=== PATIENT | female | born 1985 | race Caucasian/White ===

== ENCOUNTER 2018-12-14 10:30 | Outpatient (CLI) | payer OTHER ==
[2018-12-14 11:26] LABS: Appearance,Urine Cloudy (Clear); Bacteria,Urine Rare /hpf; Bilirubin,Urine Negative (Negative); Blood,Urine Negative (Negative); Color,Urine Yellow; Glucose,Urine (UA) Negative (Negative); Ketones,Urine Negative (Negative); Leukocyte Esterase,Urine Moderate (Negative); Mucus,Urine Rare /hpf; Nitrite,Urine Negative (Negative); PH, Urine 7.5 (5.0-8.0); Protein,Urine Negative (Negative); RBC,Urine <1 /hpf (0-5); Specific Gravity,Urine 1.014 (1.001-1.035); Squamous Epithelial Cell,Urine 9 /hpf (0-4); Urobilinogen,Urine <2.0 mg/dL (<2.0); WBC,Urine 4 /hpf (0-5)
[2018-12-14 11:32] LABS: Basophils % (A) 0 %; Eosinophils # (A) 0.1 k/uL (0-0.7); Eosinophils % (A) 1 %; HCT 35.8 % (34.0-46.0); HGB 12.1 gm/dL (11.4-16.0); Lymphocytes # (A) 1.6 k/uL (1.0-4.8); Lymphocytes % (A) 17 %; MCH 31.1 pg (25.0-35.0); MCHC 33.7 g/dL (31.0-37.0); MCV 92.3 fL (80.0-100.0); Monocytes # (A) 0.4 k/uL (0-1.0); Monocytes % (A) 4 %; Neutrophils % (A) 76 %; Platelet Count 271 k/uL (150-450); RBC 3.88 m/uL (3.80-5.40); WBC 9.3 k/uL (3.8-10.6)
[2018-12-14 11:48] LABS: ALT 24 U/L (9-52); AST 23 U/L (14-36); Blood Urea Nitrogen 7 mg/dL (7-17); LDH 387 U/L (313-618); Uric Acid 4.2 mg/dL (3.7-7.4)
[2018-12-14 11:52] VITALS: BP 134/72; PULSE 85; RESP 16; TEMP 98
--- NOTE | 2018-12-14 13:04 | P.MSEPDOC ---
Presenting Problems - Arrival Data Date of Arrival on Unit: 12/14/18 Time of Arrival on Unit: 10:35 Mode of Transport: Ambulatory - Complaint OB-Reason for Admission/Chief Complaint: PIH, Elevated Blood Pressure Comment: sent from office for elevated BP in office Medical History - Information : 2 Para: 1 Term: 1 : 0 Abortions: Spontaneous or Elective: 0 Number of Living Children: 1 - Gestational Age Gestational Age by JANIE (wks/days): 34 Weeks and 0 Days Review of Systems - Review of Systems Constitutional: No problems Breast: No problems ENT: No problems Cardiovascular: No problems Respiratory: No problems Gastrointestinal: No problems Genitourinary: No problems Musculoskeletal: No problems Neurological: No problems Skin: No problems Vital Signs - Temperature Temperature: 98.0 F Temperature Source: Temporal Artery Scan - Pulse Right Pulse Rate: 85 Pulse Assessment Method: Pulse Oximetry - Respirations Respiratory Rate: 16 O2 Sat by Pulse Oximetry: 100 - Blood Pressure Right Arm Blood Pressure: 134/72 Blood Pressure Mean: 92 Blood Pressure Source: Automatic Cuff Medical Screen Scoring (Pre) - Cervical Exam Dilation: Exam Deferred Effacement: Exam Deferred Membranes: Intact - Uterine Contractions Frequency: N/A Duration: N/A Intensity: N/A - Maternal Vital Signs Maternal Temperature: N/A Maternal Blood Pressure: N/A Signs of Preeclampsia: N/A Maternal Respirations: N/A - Assessment Baseline FHR: 145 Heart Rate - NICHD Category: Category I (Normal) = 0 NST: Reactive Position: N/A Station: N/A - Total Score Total Score (Pre): 0 - Level of Risk Level of Risk: N/A Physician Notification (Post) - Physician Notified Physician Notified Date: 12/14/18 Physician Notified Time: 12:27 Physician/Practitioner Notified:: dr antoine New Order Received: Yes - Notification Comment Comment: PT ARRIVED TO OUR UNIT FROM THE OFFICE AFTER BEING SEEN BY DR ANTOINE WITH ORDERS I agree with the RN Medical Screening Exam: Yes Risk & Benefit of care provided described in d/c instruction: Yes Diagnosis: GESTATIONAL HTN W/O SIGNIFICANT PROTEINURIA, THIRD TRIMESTER (Pre- eclampsia evaluation was negative. FHT Cat I. Blood pressures normal. Will continue to watch closely 2x/week. Delivery scheduled for 37wks unless indicated earlier.)
== END 2018-12-14 12:29 | disposition home or self-care (01) ==
LOC: FBPOP 10:30
PROVIDERS: ATTEND Obstetrics & Gynecology
DX: O13.3 Gestational [pregnancy-induced] hypertension without significant proteinuria, third trimester (principal); Z3A.34 34 weeks gestation of pregnancy
CPT/HCPCS: 59025; 81001; 82565; 82570; 83615; 84156; 84450; 84460; 84520; 84550; 85025; 99215

== ENCOUNTER 2019-01-04 05:30 | Inpatient (IN) | payer OTHER ==
[2018-12-31 14:39] VITALS: BMI 26.1
--- NOTE | 2019-01-03 07:29 | P.HPOB ---
History of Present Illness H&P Date: 01/03/19 Chief Complaint: Repeat and tubal ligation. This patient is a pleasant 33-year-old 2 para 1 female estimated date of confinement 01/25/2019 estimated gestational age 37-0/7 weeks gestation who presents for repeat section and tubal ligation. Patient's is been complicated by gestational hypertension. I initially instructed the patient did start labetalol at around 11 weeks however she elected to just watch her blood pressure at home. Patient's blood pressures ranged anywhere from 120s to the 150 over 70-90. Patient's is also complicated by advanced for maternal age and she did have a maternity 21 which was normal but did not want referral to maternal- medicine. Patient was watched with nonstress tests and growth ultrasounds. Due to the gestational hypertension, recommendation proceed with delivery at this time. Patient's had a previous section request repeat and also requesting permanent sterilization Review of Systems Gastrointestinal: Reports heartburn Genitourinary: Reports Menstruation: Reports amenorrhea Past Medical History Past Medical History: No Reported History Additional Past Medical History / Comment(s): Gestational hypertension. History of Any Multi-Drug Resistant Organisms: None Reported Past Surgical History: Bladder Surgery, Section Past Anesthesia/Blood Transfusion Reactions: No Reported Reaction Past Psychological History: No Psychological Hx Reported Smoking Status: Never smoker Past Alcohol Use History: None Reported Past Drug Use History: None Reported - Past Family History Mother Family Medical History: No Reported History Medications and Allergies Home Medications Medication Instructions Recorded Confirmed Type Pnv,Calcium 72/Iron/Folic Acid 1 each PO DAILY 12/14/18 12/31/18 History [ Plus Tablet] Allergies Allergy/AdvReac Type Severity Reaction Status Date / Time No Known Allergies Allergy Verified 12/31/18 14:33 Exam - OBG Physical Exam Abdomen: bowel sounds normal, no diffuse tenderness, no bruit present, no guarding noted, no hepatomegaly, no splenomegaly, no mass Vulva: both: normal Vagina: normal moisture, no discharge Cervix: no lesion (Cervix in the office is closed), no discharge Uterus: enlarged (Fundal height is 38 cm) Results blood work shows she is oh positive, rubella immune, RPR nonreactive, HIV nonreactive, hepatitis B was negative, maternity T21 showed normal 46 XY, Glucola was normal, group B strep was positive. Assessment and Plan Assessment: This is a pleasant 33-year-old 2 para 1 female 37 weeks gestation with gestational hypertension, previous section desires repeat, and request for permanent sterilization. Plan is repeat low transverse section and bilateral partial salpingectomy. The patient and I have discussed the fact that a tubal ligation is permanent however there is a failure rate of approximately 5 or less per thousand procedures done. She also understands surgery itself apparently has risks including risks of infection, bleeding, possible injury to bowel, bladder, vessels, and/or other organs. She understands risk of DVT and pulmonary embolism. All the patient's questions have been answered and a written consent is obtained. (1) 37 weeks gestation of Status: Acute Code(s): Z3A.37 - 37 WEEKS GESTATION OF SNOMED Code(s): 90089347 (2) Gestational hypertension Status: Acute Code(s): O13.9 - GESTATIONAL HTN W/O SIGNIFICANT PROTEINURIA, UNSP TRIMESTER SNOMED Code(s): 124236844 (3) Elderly multigravida Status: Acute Code(s): O09.529 - SUPERVISION OF ELDERLY MULTIGRAVIDA, UNSPECIFIED TRIMESTER SNOMED Code(s): 592873955 (4) Family planning Status: Acute Code(s): Z30.09 - ENCOUNTER FOR OT GENERAL CNSL AND ADVICE ON CONTRACEPTION SNOMED Code(s): 261412503 (5) Group B streptococcal carriage complicating Status: Acute Code(s): O99.820 - STREPTOCOCCUS B CARRIER STATE COMPLICATING SNOMED Code(s): 160305411197984
[2019-01-04] MEDS ORDERED: LACTATED RINGERS 1,000 ML IV SCH (05:46)
[2019-01-04] MEDS ORDERED: CITRIC ACID-SODIUM CITRATE 15 ML CUP PO ONE (05:46)
[2019-01-04] MEDS ORDERED: LACTATED RINGERS 1,000 ML IV ONE (05:46)
[2019-01-04 06:40] LABS: Basophils % (A) 0 %; Eosinophils # (A) 0.1 k/uL (0-0.7); Eosinophils % (A) 1 %; HCT 36.9 % (34.0-46.0); HGB 12.3 gm/dL (11.4-16.0); Lymphocytes # (A) 2.1 k/uL (1.0-4.8); Lymphocytes % (A) 24 %; MCH 30.4 pg (25.0-35.0); MCHC 33.4 g/dL (31.0-37.0); MCV 91.2 fL (80.0-100.0); Mean Platelet Volume 8.1; Monocytes # (A) 0.6 k/uL (0-1.0); Monocytes % (A) 7 %; Neutrophils # (A) 5.9 k/uL (1.3-7.7); Neutrophils % (A) 66 %; Platelet Count 261 k/uL (150-450); RBC 4.04 m/uL (3.80-5.40); RDW 14.8 % (11.5-15.5); WBC 8.9 k/uL (3.8-10.6)
[2019-01-04 06:45] LABS: INR 0.9 (<1.2); Prothrombin Time 9.6 sec (9.0-12.0)
[2019-01-04] MEDS ORDERED: ceFAZolin IN SWFI 2 GM/20 ML SYRINGE IVP ONE (07:15)
[2019-01-04 07:30] LABS: Partial Thromboplastin Time 20.9 sec (22.0-30.0)
[2019-01-04] MEDS ORDERED: ONDANSETRON 4 MG/2 ML VIAL ONE (07:44)
[2019-01-04] MEDS ORDERED: MORPHINE SULFATE (PF) 0.3 MG/0.3 ML SYR ONE (07:44)
[2019-01-04] MEDS ORDERED: ePHEDrine SULFATE/0.9% NACL/PF 50 MG/5 ML SYRINGE IV ONE (07:44)
[2019-01-04] MEDS ORDERED: NALBUPHINE 10 MG/ML (1 ML AMP) ONE (07:44)
[2019-01-04] MEDS ORDERED: KETOROLAC 30 MG/ML 1 ML VIAL ONE (07:44)
[2019-01-04] MEDS ORDERED: OXYTOCIN 10 UNIT/ML 1 ML VIAL ONE (07:44)
[2019-01-04] MEDS ORDERED: LACTATED RINGERS 1,000 ML BAG IV ONE (07:44)
[2019-01-04] MEDS ORDERED: NALBUPHINE 10 MG/ML (1 ML AMP) IV PRN (08:02)
[2019-01-04] MEDS ORDERED: NALOXONE 0.4 MG/ML 1 ML VIAL IV PRN ×2 (08:02→08:46)
[2019-01-04] MEDS ORDERED: HYDROmorphone 1 MG/ML 1 ML SYRINGE IVP PRN (08:02)
[2019-01-04] MEDS ORDERED: ONDANSETRON 4 MG/2 ML VIAL IVP PRN ×2 (08:02→08:46)
--- NOTE | 2019-01-04 08:32 | P.OP ---
Date of Procedure: 01/04/19 Preoperative Diagnosis: #1: 37-0/7 week . #2: Gestational hypertension. #3: Previous section desires repeat. #4: Multi parity desires permanent sterilization. Postoperative Diagnosis: Same Procedure(s) Performed: Repeat low transverse section and bilateral partial salpingectomy Anesthesia: spinal Surgeon: Nilesh Pereira Ice Cream Dipper #1: No Edwards Estimated Blood Loss (ml): 800 Pathology: other (Placenta and bilateral fallopian tube segments) Condition: stable Disposition: floor Indications for Procedure: Please see dictated H&P for intimate details of this patient's admission. Brief summary this is a pleasant 33-year-old 2 para 1 female 37 weeks gestation who is been monitored closely for gestational hypertension who is now at 37 weeks and been recommended to proceed with delivery at this time. Patien t's had previous section desires repeat and also requests permanent sterilization. Patient understands a tubal ligation is permanent however does have a failure rate of approximately 5 or less per thousand procedures done. She understands if she does become she is a 50% chance of a tubal or an ectopic . Patient also understands that surgery itself and apparently has risks including risks of infection, bleeding, possible injury to bowel, bladder, vessels, and/or other organs. All the patient's questions been answered and written consent is obtained. Operative Findings: This was a vigorous viable male Apgars 8 and 9 delivery time was 0758 hours. Description of Procedure: This patient has a Zapata catheter placed to straight drain. She is subsequently taken to the operating room where she sat up and spinal anesthetic is administered without incident. With an adequate level of anesthesia she has abdominal prep and drape. Scalpels and taken the previous Pfannenstiel incision is incised. A second scalpel is taken down the fascia and the fascia scored with a knife. Fascial incision extended bilaterally using the Schultz scissors. Fascia is then dissected sharply off the rectus muscles. Rectus muscles are and the peritoneum identified and entered sharply. Peritoneal incision extended superior and inferior without difficulty. Latter blade is then placed. Bladder peritoneum was taken down sharply with a Metzenbaum scissors. Scalpels and taken a low transverse uterine incision is made. Hemostat is then gently placed into the uterine cavity and there is loss of clear fluid. This incision is extended bluntly. The 's head is then guided through the incision with fundal pressure delivered. Mouth and nares are bulb suctioned. There is no evidence of a nuchal cord. We then deliver the rest this 's body. This is a vigorous viable male infant Apgars are 8 and 9 delivery time is 0758 hours. After delivery of the the umbilical cords doubly clamped and cut appears to be trivascular. The placenta is then manually extracted intact. Uterus is then externalized. Uterine incision demarcated with Hein clamps it is quite thick. There is a 2-3 cm posterior fibroid otherwise the uterus tubes and ovaries appear normal. Uterine incision is then explored and all placental tissue has been removed. Incision is then closed using 0 Vicryl running locked fashion. Excellent hemostasis is noted bladder peritoneum was then closed using a 3-0 Vicryl. I then turned my attention to the left fallopian tube and approximately 4 cm from the cornual insertion I make a small window through the mesial salpinx with bovie cautery. Using a 2-0 silk I doubly ligate a 2 cm segment of the tube. This is excised and handed off to pathology. Cauterization is done of the tubal ends. Excellent hemostasis is noted. Turned my attention to the right side and using a similar technique I remove a portion of the right fallopian tube again good hemostasis is noted. Excess fluid is removed from the abdomen and pelvis. The parietal peritoneum was then identified. I inspected tubal ends once again and all appears hemostatic. Parietal peritoneum was then closed using 0 Vicryl running fashion. Rectus muscles were approximate Vicryl interrupted fashion. Fascia is then closed using 0 PDS. Fascial incision is intact and hemostatic. Subcutaneous tissues and closed using a 3-0 Vicryl. Skin is and closed using sophia. All counts are correct 3. There are no complications. Infant and mother are taken to the birthing suite in satisfactory condition.
[2019-01-04] MEDS ORDERED: HYDROcodone/APAP 5-325MG 1 EACH TAB PO PRN (08:46)
[2019-01-04] MEDS ORDERED: diphenhydrAMINE 50 MG/ML 1 ML VIAL IVP PRN (08:46)
[2019-01-04] MEDS ORDERED: diphenhydrAMINE 25 MG CAP PO PRN (08:46)
[2019-01-04] MEDS ORDERED: ACETAMINOPHEN TAB 325 MG TAB PO PRN (08:46)
[2019-01-04] MEDS ORDERED: ZOLPIDEM 5 MG TAB PO PRN (08:46)
[2019-01-04] MEDS ORDERED: LANOLIN CREAM 5 GM TUBE TOPICAL PRN (08:46)
[2019-01-04] MEDS ORDERED: KETOROLAC 30 MG/ML 1 ML VIAL IVP PRN (08:46)
[2019-01-04] MEDS ORDERED: OXYTOCIN 20 UNITS/1000 ML NS 1,000 ML IV SCH (08:46)
[2019-01-04] MEDS ORDERED: METOCLOPRAMIDE 5 MG/ML 2 ML VIAL IVP PRN (08:46)
[2019-01-04] MEDS: SENNOSIDES-DOCUSATE SODIUM 1 EACH TAB PO SCH ×2 (18:34→19:34)
[2019-01-04] MEDS: LACTATED RINGERS 1,000 ML IV SCH (18:35)
[2019-01-05 05:42] LABS: Basophils % (A) 0 %; Eosinophils # (A) 0.1 k/uL (0-0.7); Eosinophils % (A) 1 %; HCT 33.2 % (34.0-46.0); HGB 11.4 gm/dL (11.4-16.0); Lymphocytes # (A) 1.6 k/uL (1.0-4.8); Lymphocytes % (A) 13 %; MCH 31.6 pg (25.0-35.0); MCHC 34.3 g/dL (31.0-37.0); MCV 92.3 fL (80.0-100.0); Mean Platelet Volume 7.5; Monocytes # (A) 0.7 k/uL (0-1.0); Monocytes % (A) 6 %; Neutrophils # (A) 10.1 k/uL (1.3-7.7); Neutrophils % (A) 79 %; Platelet Count 232 k/uL (150-450); RDW 14.4 % (11.5-15.5); WBC 12.8 k/uL (3.8-10.6)
--- NOTE | 2019-01-05 05:50 | P.PN ---
Progress Note - Text Progress Note Date: 01/05/19 POD 1 from . Had a spinal with Duramorph. Doing well this morning, able to ambulate and urinate on her own. No lower ext weakness. No parasthesia. No pruritis. Pain under control. No mental status changes.
--- NOTE | 2019-01-05 06:35 | P.PNOBGPC ---
Subjective - Subjective Patient reports: Reports appetite normal, Reports voiding normally, Reports pain well controlled, Reports ambulating normally : doing well, in NICU Objective - Vital Signs Latest vital signs: Vital Signs Temp Pulse Resp BP Pulse Ox 01/05/19 06:00 16 01/05/19 04:00 98.0 F 83 16 114/63 98 01/05/19 02:00 16 01/05/19 00:00 98.1 F 70 16 111/60 98 01/04/19 22:00 16 01/04/19 20:00 98.0 F 93 16 119/76 97 01/04/19 17:00 16 99 01/04/19 16:00 99 F 76 16 126/71 99 01/04/19 15:00 16 98 01/04/19 13:02 98 01/04/19 13:00 99 F 76 16 126/71 98 01/04/19 12:00 97.5 F L 76 18 126/79 98 01/04/19 11:02 18 98 01/04/19 10:29 97.1 F L 73 18 117/57 98 01/04/19 09:59 97.5 F L 74 18 126/59 98 01/04/19 09:29 97.5 F L 76 18 129/58 97 01/04/19 09:14 73 18 120/59 98 01/04/19 09:02 18 96 01/04/19 08:59 98.5 F 71 18 121/60 100 01/04/19 08:44 82 18 131/60 96 01/04/19 08:29 97.2 F L 73 18 122/55 01/04/19 08:02 18 96 Intake and Output 01/04/19 01/04/19 01/05/19 14:59 22:59 06:59 Output Total 125 1200 Balance -125 -1200 Output: Urine 125 1200 Other: Voiding Method Indwelling Catheter # Voids 1 1 - Exam Lungs: bilateral: normal Chest: Normal S1, Normal S2 Extremities: Present: normal Abdomen: Present: normal appearance, soft. Absent: distention, tenderness Incision: Present: normal, dry, intact Uterus: Present: normal, firm - Labs Labs: Abnormal Lab Results - Last 24 Hours (Table) 01/04/19 01/05/19 Range/Units 06:04 05:14 WBC 12.8 H (3.8-10.6) k/uL RBC 3.60 L (3.80-5.40) m/uL Hct 33.2 L (34.0-46.0) % Neutrophils # 10.1 H (1.3-7.7) k/uL APTT 20.9 L (22.0-30.0) sec Assessment and Plan Assessment: Post operative day #1. Patient is resting without complaints. Vital signs are stable her blood pressures excellent. Uterus is firm nontender and her incision is intact and dry. My impression is this is a normal postoperative course. Plan is to check a CBC, encourage ambulation, allow the patient to shower, and continue regular diet. (1) 37 weeks gestation of Current Visit: No Status: Acute Code(s): Z3A.37 - 37 WEEKS GESTATION OF SNOMED Code(s): 87013356 (2) Gestational hypertension Current Visit: No Status: Acute Code(s): O13.9 - GESTATIONAL HTN W/O SIGNIFICANT PROTEINURIA, UNSP TRIMESTER SNOMED Code(s): 879489472 (3) Elderly multigravida Current Visit: No Status: Acute Code(s): O09.529 - SUPERVISION OF ELDERLY MULTIGRAVIDA, UNSPECIFIED TRIMESTER SNOMED Code(s): 927864496 (4) Family planning Current Visit: No Status: Acute Code(s): Z30.09 - ENCOUNTER FOR OT GENERAL CNSL AND ADVICE ON CONTRACEPTION SNOMED Code(s): 659745277 (5) Group B streptococcal carriage complicating Current Visit: No Status: Acute Code(s): O99.820 - STREPTOCOCCUS B CARRIER STATE COMPLICATING SNOMED Code(s): 845743057970347
[2019-01-05] MEDS: IBUPROFEN 600 MG TAB PO PRN ×3 (08:34→22:28)
[2019-01-05] MEDS: SIMETHICONE 80 MG CHEWABLE PO PRN ×2 (08:35→22:28)
[2019-01-05] MEDS: SENNOSIDES-DOCUSATE SODIUM 1 EACH TAB PO SCH ×2 (08:36→20:37)
--- NOTE | 2019-01-06 06:44 | P.PNOBGPC ---
Subjective - Subjective Patient reports: Reports appetite normal, Reports voiding normally, Reports pain well controlled, Reports ambulating normally : doing well, in NICU Objective - Vital Signs Latest vital signs: Vital Signs Temp Pulse Resp BP Pulse Ox 01/06/19 00:00 97.1 F L 84 18 125/58 01/05/19 16:00 97.9 F 88 18 130/56 01/05/19 08:00 98.1 F 93 16 115/62 99 Intake and Output 01/05/19 01/05/19 01/06/19 14:59 22:59 06:59 Intake Total 1200 600 Balance 1200 600 Intake: Oral 1200 600 Other: # Voids 1 3 2 - Exam Lungs: bilateral: normal Chest: Normal S1, Normal S2 Extremities: Present: normal Abdomen: Present: normal appearance, soft. Absent: distention, tenderness Incision: Present: normal, dry, intact Uterus: Present: normal, firm Assessment and Plan Assessment: Postoperative day #2. Patient is resting without new complaints. CBC yesterday was normal. Patient is ambulating and urinating without difficulty. Incision is intact and dry. My impression is a normal postoperative course. Plan is to continue routine postoperative care most likely discharge home tomorrow or the following day. (1) 37 weeks gestation of Current Visit: No Status: Acute Code(s): Z3A.37 - 37 WEEKS GESTATION OF SNOMED Code(s): 61421010 (2) Gestational hypertension Current Visit: No Status: Acute Code(s): O13.9 - GESTATIONAL HTN W/O SIGNIFICANT PROTEINURIA, UNSP TRIMESTER SNOMED Code(s): 853626372 (3) Elderly multigravida Current Visit: No Status: Acute Code(s): O09.529 - SUPERVISION OF ELDERLY MULTIGRAVIDA, UNSPECIFIED TRIMESTER SNOMED Code(s): 898527558 (4) Family planning Current Visit: No Status: Acute Code(s): Z30.09 - ENCOUNTER FOR OTH GENERAL CNSL AND ADVICE ON CONTRACEPTION SNOMED Code(s): 064907833 (5) Group B streptococcal carriage complicating Current Visit: No Status: Acute Code(s): O99.820 - STREPTOCOCCUS B CARRIER STATE COMPLICATING SNOMED Code(s): 777877208274877
[2019-01-06] MEDS: SENNOSIDES-DOCUSATE SODIUM 1 EACH TAB PO SCH ×2 (09:17→20:00)
[2019-01-06 23:20] VITALS: BP 128/68; PULSE 68; RESP 18; TEMP 97.8
[2019-01-06] MEDS: IBUPROFEN 600 MG TAB PO PRN (23:50)
--- NOTE | 2019-01-07 06:39 | P.PNOBGPC ---
Subjective - Subjective Patient reports: Reports appetite normal, Reports voiding normally, Reports pain well controlled, Reports ambulating normally : doing well Objective - Vital Signs Latest vital signs: Vital Signs Temp Pulse Resp BP Pulse Ox 01/06/19 23:19 97.8 F 68 18 128/68 100 01/06/19 16:00 98.4 F 75 16 122/65 01/06/19 08:00 98.2 F 80 16 126/73 - Exam Lungs: bilateral: normal Chest: Normal S1, Normal S2 Extremities: Present: normal Abdomen: Present: normal appearance, soft. Absent: distention, tenderness Incision: Present: normal, dry, intact Uterus: Present: normal, firm Assessment and Plan Assessment: Postoperative day #3. Patient is resting without complaints and wishes to go home. Vital signs are stable she is afebrile. Uterus is firm nontender her incision is intact and dry. My impression this is a normal course. Plan is to continue routine postoperative care discharge home later today. (1) 37 weeks gestation of Current Visit: No Status: Acute Code(s): Z3A.37 - 37 WEEKS GESTATION OF SNOMED Code(s): 85643625 (2) Gestational hypertension Current Visit: No Status: Acute Code(s): O13.9 - GESTATIONAL HTN W/O SIGNIFICANT PROTEINURIA, UNSP TRIMESTER SNOMED Code(s): 556717711 (3) Elderly multigravida Current Visit: No Status: Acute Code(s): O09.529 - SUPERVISION OF ELDERLY MULTIGRAVIDA, UNSPECIFIED TRIMESTER SNOMED Code(s): 290777688 (4) Family planning Current Visit: No Status: Acute Code(s): Z30.09 - ENCOUNTER FOR OT GENERAL CNSL AND ADVICE ON CONTRACEPTION SNOMED Code(s): 916175538 (5) Group B streptococcal carriage complicating Current Visit: No Status: Acute Code(s): O99.820 - STREPTOCOCCUS B CARRIER STATE COMPLICATING SNOMED Code(s): 381317227499610
--- NOTE | 2019-01-07 06:47 | P.DS ---
Providers Date of admission: 01/04/19 05:30 Expected date of discharge: 01/07/19 Attending physician: Nilesh Pereira Primary care physician: Stated None - Discharge Diagnosis(es) (1) 37 weeks gestation of Current Visit: No Status: Acute (2) Gestational hypertension Current Visit: No Status: Acute (3) Elderly multigravida Current Visit: No Status: Acute (4) Family planning Current Visit: No Status: Acute (5) Group B streptococcal carriage complicating Current Visit: No Status: Acute Hospital Course: Please see dictated H&P for intimate details of this patient's admission. Brief summary this is a pleasant 33-year-old 2 para 1 female 37 weeks gest ation admitted to labor and delivery for elective repeat section and tubal ligation for gestational hypertension. Patient is admitted undergoes above-named surgery. Please see dictated operative note. Postoperatively 3 patient's felt be stable for discharge home follow up with me in 1 week. Procedures: Repeat low transverse section and bilateral partial salpingectomy Patient Condition at Discharge: Good Plan - Discharge Summary Discharge Rx Participant: No New Discharge Prescriptions: New Ibuprofen [Motrin] 600 mg PO Q6HR PRN #30 tab PRN Reason: Mild Pain Or Fever >= 100.5 HYDROcodone/APAP 5-325MG [[place] 5-325] 2 each PO Q4HR PRN #36 tab PRN Reason: Moderate Pain No Action Pnv,Calcium 72/Iron/Folic Acid [ Plus Tablet] 1 each PO DAILY Discharge Medication List Pnv,Calcium 72/Iron/Folic Acid [ Plus Tablet] 1 each PO DAILY 12/14/18 [History] HYDROcodone/APAP 5-325MG [[place] 5-325] 2 each PO Q4HR PRN #36 tab 01/07/19 [Rx] Ibuprofen [Motrin] 600 mg PO Q6HR PRN #30 tab 01/07/19 [Rx] Follow up Appointment(s)/Referral(s): Nilesh Pereira MD [STAFF PHYSICIAN] - 01/12/19 8:30 am (Patient also has a visit on February 14 at 2 PM.) Patient Instructions/Handouts: (DC) Activity/Diet/Wound Care/Special Instructions: No heavy lifting or strenuous activities. Please call if any fever, chills, excessive vaginal bleeding, and/or abdominal pain. Discharge Disposition: HOME SELF-CARE
== END 2019-01-07 08:04 | disposition home or self-care (01) | DRG 785 ==
LOC: 4FBP 05:30
PROVIDERS: ADMIT Obstetrics & Gynecology; ATTEND Obstetrics & Gynecology
PROC: 0UB70ZZ Excision of Bilateral Fallopian Tubes, Open Approach (ICD-10-PCS; principal; 2019-01-04 08:00)
PROC: 10D00Z1 Extraction of Products of Conception, Low, Open Approach (ICD-10-PCS; principal; 2019-01-04 08:00)
DX: O13.4 Gestational [pregnancy-induced] hypertension without significant proteinuria, complicating childbirth (principal); O34.211 Maternal care for low transverse scar from previous cesarean delivery; O99.824 Streptococcus B carrier state complicating childbirth; Z30.2 Encounter for sterilization; Z37.0 Single live birth; Z3A.37 37 weeks gestation of pregnancy
CPT/HCPCS: 85025; 85610; 85730; 86850; 86900; 86901; 88302; 88307